=== PATIENT | female | born 1990 | race Caucasian/White ===

== ENCOUNTER 2023-02-03 10:35 | Emergency (ER) | payer MEDICAID, SELFPAY ==
[2023-02-03 10:40] VITALS: BP 140/88; PULSE 87; RESP 17; TEMP 36.8; O2SAT 97
--- NOTE | 2023-02-03 11:10 | W.ED.GENAD ---
Discharge Plan Disposition Patient Disposition: Home Condition: Fair Discharge Details Clinical Impression: Dental infection Primary Care Provider: None,None ED Provider: Chantal Dunlap Home Meds and New Rx's Prescriptions: New amoxicillin-pot clavulanate 875-125 mg tablet 1 tab PO BID Qty: 14 0RF Discharge Instructions Instructions: Dental Abscess (ED) Additional Instructions: Exam is most concerning for dental infection. Please take the antibiotics as prescribed. Even if symptoms improve, please see the entire course. You may use ice to help with discomfort. Tylenol and ibuprofen as needed for discomfort. Please take as directed on the packaging. He will need definitive care with dentist to ensure no recurrence of infection. I have attached a list of local dental resources that you may reach out to you to schedule follow-up appointment. I have also put the number for women's health below so that you may call to establish care. I have also asked her care management to assist with getting local primary care. If your symptoms worsen such as headache, vision changes, fevers, spreading of the swelling, difficulty swallowing or other new/worsening symptoms please seek care urgently once again. Referrals: Kierra Mena MD [ [facility] STAFF PHYSICIAN] - Discharge Data Discharge Date/Time-TO BE ENTERED AT DEPARTURE: 02/03/23 11:35 Medical Decision Making patient is a pleasant 32-year-old female without significant past medical history presents today with chief complaint of left upper dental pain that began yesterday. Woke this morning and notes swelling to her left cheek as well. She denies any fevers or chills. No headache. Swelling can impede her vision somewhat if he tries to look down but otherwise no blurred vision or eye pain. No pain with extraocular movements. She denies any sinus discharge. Reports that she has chronically poor dentition has not been seen by a dentist since she was a child. Patient is currently menstruating. Is new to the area, does not have local primary care and would like to also establish with women's health provider. On exam, patient appears nontoxic. She does have swelling to the left cheek that does extend just below the eye but no eye involvement. No surrounding erythema. No extraocular movement pain or limitations. Do not see evidence of orbital cellulitis. The skin is not erythematous at this time. No area of fluctuance. She does have poor dentition and pain seems to be more focal around teeth 10 and 11 although again, no intraoral abscesses palpated. Posterior oropharynx normal with no evidence of obstruction or abscess. Handling secretions well. No palpable lymphadenopathy. We will begin the patient on clindamycin. Encourage hydration. Tylenol and ibuprofen as needed for discomfort. We will give her a list of local primary care. Also given the number for women's wellness and asked care management to ensure follow-up with primary care. Strict return precautions were discussed. All questions and concerns were addressed and she is agreement this plan. After patient left, she needed prescription to be changed, will call in to [facility] in [facility] General Date/Time Provider Initiated Documentation: 02/03/23 10:39. Limitations to Documentation: no limitations. Information obtained by: patient and RN notes reviewed. History of Present Illness 32 year old F presents to the emergency department with the chief complaint of left upper dental pain and facial swelling, described as moderate and similar to prior episodes, with intensity rated at 5. Quality is described as aching, and is localized to the face and mouth. Patient reports no radiation. Patient started experiencing this day(s) and it has been constant. No relieving factors improve symptom(s), Eating worsens symptoms . Patient notes no other symptoms.. Patient did receive the following treatments prior to arrival, NSAID Related Data Home Medications Medication Instructions Recorded Confirmed amoxicillin 875 mg-potassium 1 tab PO BID #14 tabs 02/03/23 clavulanate 125 mg tablet Previous Rx's Medication Instructions Recorded amoxicillin 875 mg-potassium 1 tab PO BID #14 tabs 02/03/23 clavulanate 125 mg tablet Allergies Allergy/AdvReac Type Severity Reaction Status Date / Time sulfamethoxazole Allergy Unknown Other (See Unverified 02/03/23 10:45 [From Bactrim] Comment) trimethoprim [From Bactrim] Allergy Unknown Other (See Unverified 02/03/23 10:45 Comment) General Stated Complaint: DentalOral DANY: 4 Review of Systems Constitutional Constitutional: Reports as per HPI, Denies chills, Denies fatigue, Denies fever(s) and Denies headache(s) Eyes Eyes: Denies change in vision and Denies irritation ENT Ears, Nose, Mouth, and Throat: Reports as per HPI, Reports dental pain, Denies dysphagia, Denies otalgia, Reports facial pain, Denies headache(s), Denies hoarseness, Denies odynophagia and Denies sore throat Cardiovascular Cardiovascular: Reports as per HPI and Denies chest pain Respiratory Respiratory: Reports as per HPI and Denies cough Gastrointestinal Gastrointestinal: Reports as per HPI, Denies dysphagia, Denies nausea, Denies odynophagia and Denies vomiting Integumentary/Breasts Skin/Breast: Reports as per HPI, Denies erythema, Denies rash and Denies skin pain Neurologic Neurologic: Reports as per HPI and Denies headache(s) Endocrine Endocrine: Denies fatigue PFSH All Active Problems (Updated 02/12/23 @ 23:42 by Gerardo Diana NP) Dental infection (Acute) Ankle pain, left (Acute) Social History Smoking/Tobacco Use Status: Never Smoking risk assessment performed?: Yes Alcohol Intake: never Drug use: Occasionally Substance use type: marijuana Do you feel safe at home: Yes Do you feel safe in your relationship?: Yes Exam Const General: cooperative, healthy appearing, comfortable, no acute distress, well developed and well groomed Nutritional Appearance: well nourished and overweight Orientation: alert and awake [facility] Head: normal to inspection, normocephalic and atraumatic Ears: hearing grossly normal bilaterally, external ears normal and TM's normal bilaterally General nose exam: external nose normal and nares normal Face and sinus: sinuses nontender, face asymmetric (swelling noted left upper cheek, no fluctuant or redness), no crepitus, no ecchymosis, no erythema, no fluctuance, no sinus tenderness and tenderness Mouth: lip normal, tongue normal, oropharynx normal, moist mucous membranes, no audible dysphonia, no drooling and no muffled voice Teeth and gingiva: caries and poor dentition Throat: posterior oropharynx normal, tonsils normal and uvula midline Eyes General: appearance normal, both eyes and all related structures Neck Neck: normal visual inspection, full ROM, no lymphadenopathy, supple and no anterior neck swelling Resp Effort & Inspection: normal respiratory effort, able to speak in complete sentences and no respiratory distress Auscultation: clear to auscultation bilaterally, no rales, no rhonchi and no wheezes Cardio Rate: regular rate Rhythm: regular rhythm Heart Sounds: S1 normal and S2 normal Skin General skin exam: no rashes or lesions noted Trauma: no lacerations or abrasions Neuro General: patient alert and patient awake Cognition: normal cognition Speech: speech normal Gait: normal gait Psych Appearance: grossly normal and well kempt Mental Status: mental status grossly normal Speech and Movement: speech and movement normal Course Vital Signs Vital signs: Vital Signs Temperature 36.8 C 02/03/23 10:40 Pulse 87 02/03/23 10:40 Respiratory Rate 17 02/03/23 10:40 Blood Pressure 140/88 02/03/23 10:40 Pulse Oximetry 97 02/03/23 10:40 Temperature 36.8 C 02/03/23 10:40 Temperature Source Oral 02/03/23 10:40 Pulse 87 02/03/23 10:40 Respiratory Rate 17 02/03/23 10:40 Respiratory Effort Normal 02/03/23 10:44 Blood Pressure 140/88 02/03/23 10:40 Blood Pressure Position Sitting 02/03/23 10:40 Pulse Oximetry 97 02/03/23 10:40 Oxygen Delivery Method Room Air 02/03/23 10:40 Oxygen Flow Rate 0 02/03/23 10:40 Pain Level 5 02/03/23 10:44
== END 2023-02-03 11:35 | disposition home or self-care (01) ==
PROVIDERS: Emergency Provider Physician Assistant
DX: K04.7 Periapical abscess without sinus (principal)
CPT/HCPCS: 99283

== ENCOUNTER 2023-02-12 22:24 | Emergency (ER) | payer MEDICAID, SELFPAY ==
[2023-02-12 22:27] VITALS: BP 148/66; PULSE 79; RESP 22; TEMP 36.9; O2SAT 99
--- NOTE | 2023-02-12 22:30 | DI.RAD_ITS ---
Exam(s) XR ANKLE LT COMPLETE EXAM: XR ANKLE LT COMPLETE CLINICAL HISTORY: left ankle TECHNIQUE: 2D digital imaging was performed. Three views. COMPARISON: No exams were available for comparison FINDINGS: BONES: No acute fracture is present. No bony destructive lesion is seen. Hardware present distal ti az and fibula JOINTS:The ankle mortise is normally aligned. SOFT TISSUE: Normal. IMPRESSION: No acute abnormality. DATA REPOSITORY: RADIATION DOSE DELIVERED:
[2023-02-12] MEDS: Ibuprofen 600 MG TAB PO (22:46)
--- NOTE | 2023-02-12 23:30 | ED.GENADUL_ITS ---
Discharge Plan Disposition Patient Disposition: Home Discharge Details Clinical Impression: Ankle pain, left Primary Care Provider: None,None ED Provider: Gerardo Diana Home Meds and New Rx's Prescriptions: No Action amoxicillin-pot clavulanate 875-125 mg tablet 1 tab PO BID Qty: 14 0RF Discharge Instructions Instructions: Ankle Strain (ED) Additional Instructions: You may continue to use [id number] acetaminophen or ibuprofen as needed for discomfort. Please take on packaging. If you have any new or significant worsening of symptoms feel free to return the emergency department for reassessment otherwise follow-up with your primary care provider for recheck if you are not improving over the next 1 to 2 weeks. Referrals: Primary Care Provider [Outside] Discharge Data Discharge Date/Time-TO BE ENTERED AT DEPARTURE: 02/12/23 23:53 Medical Decision Making Patient presenting to the emergency department for chief complaint of left ankle pain. Patient states previous fracture approximately 7 years ago. [place] and then when she got home started noticing worsening ankle pain and discomfort with some swelling. Denies known specific injury or trauma. Denies all other symptoms. Physical exam shows tenderness mostly to the ligamentous areas of the ankle with no specific bony prominence tenderness of concern. Distal to the ankle there is no tenderness pulses sensation cap refill and movement is all intact. Patient actually does have appropriate range of motion of ankle. I suspect mostly soft tissue/ligamentous injury but will perform radiological imaging given that patient states complicated previous repair with in-place hardware. Pending results. Patient ibuprofen. Reviewed radiological imaging and do not see any signs of acute fracture or dislocation. Due to time of evening patient wanting to go home we will discharge patient but I did inform her that we will contact her if there are any significant abnormalities noted on radiologist read. Patient given Pio wrap and ice pack per her request which I feel is reasonable and patient to follow-up with primary care provider for any new or significant worsening of symptoms or return as needed.After discussion of diagnosis and plan of care patient has no further needs, questions, or concerns and states clear understanding to return to the emergency department for any worsening symptoms. This documentation was generated using [employer] system, please disregard any oddities of phrase or misspellings. HPI General Mode of arrival: wheelchair . Date/Time Provider Initiated Documentation: 02/12/23 22:35 . Limitations to Documentation: no limitations . Information obtained by: patient, family and RN notes reviewed . History of Present Illness 32 year old F presents to the emergency department with the chief complaint of Left ankle pain, described as moderate, severe and similar to prior episodes, and is localized to the left and lower extremity. Patient started experiencing this hour(s) (3) and it has been constant. No relieving factors improve symptom(s), Movement worsens symptoms . Patient notes no other symptoms.. Patient did receive the following treatments prior to arrival, none Related Data Home Medications Medication Instructions Recorded Confirmed amoxicillin 875 mg-potassium 1 tab PO BID #14 tabs 02/03/23 clavulanate 125 mg tablet Previous Rx's Medication Instructions Recorded amoxicillin 875 mg-potassium 1 tab PO BID #14 tabs 02/03/23 clavulanate 125 mg tablet Allergies Allergy/AdvReac Type Severity Reaction Status Date / Time sulfamethoxazole Allergy Unknown Other (See Unverified 02/03/23 10:45 [From Bactrim] Comment) trimethoprim [From Bactrim] Allergy Unknown Other (See Unverified 02/03/23 10:45 Comment) General Stated Complaint: Orthopedic DANY: 4 Review of Systems Narrative: 6 systems reviewed and unremarkable except what is marked below. Musculoskeletal Musculoskeletal: Reports as per HPI and Reports arthralgias PFSH All Active Problems (Updated 02/12/23 @ 23:42 by Gerardo Diana NP) Dental infection (Acute) Ankle pain, left (Acute) Social History Smoking/Tobacco Use Status: Never Smoking risk assessment performed?: Yes Alcohol Intake: never Drug use: Occasionally Substance use type: marijuana Do you feel safe at home: Yes Do you feel safe in your relationship?: Yes Exam Const General: cooperative, no acute distress and not ill appearing Orientation: alert, awake and oriented x3 HENMT Mouth: moist mucous membranes Resp Effort & Inspection: normal respiratory effort, able to speak in complete sentences and no respiratory distress Cardio Rate: regular rate Rhythm: regular rhythm Pulses: normal peripheral pulses Skin General skin exam: no rashes or lesions noted Neuro General: patient alert, patient awake, patient oriented x3, moves all extremities and no focal motor deficits Sensory Exam: no sensory deficits noted Extrem Left lower extremity: ankle Details: tenderness Location: of the anterior talofibular ligament; not of the lateral malleolus and not of the medial ma lleolus and normal ROM; no swelling, no abrasions and no lacerations and foot Details: normal capillary refill, toes with normal ROM and vascular exam Details: dorsalis pedis pulse present and normal capillary refill; no tenderness Course Vital Signs Vital signs: Vital Signs Temperature 36.9 C 02/12/23 22:27 Pulse 79 02/12/23 22:27 Respiratory Rate 22 02/12/23 22:27 Blood Pressure 148/66 H 02/12/23 22:27 Pulse Oximetry 99 02/12/23 22:27 Temperature 36.9 C 02/12/23 22:27 Pulse 79 02/12/23 22:27 Respiratory Rate 22 02/12/23 22:27 Respiratory Effort Normal 02/12/23 22:31 Blood Pressure 148/66 H 02/12/23 22:27 Blood Pressure Position Sitting 02/12/23 22:27 Pulse Oximetry 99 02/12/23 22:27 Pain Level 9 02/12/23 22:27
--- NOTE | 2023-02-12 23:56 | DI.VRAD_ITS ---
PROCEDURE INFORMATION: Exam: XR Left Ankle Exam date and time: 02/12/2023 11:05 PM Age: 32 years old Clinical indication: Pain; Ankle; Left; Prior surgery; Surgery date: 6+ months; Surgery type: Reconstruction surgery; Additional info: Left ankle pain TECHNIQUE: Imaging protocol: Radiologic exam of the left ankle. Views: 3 or more views. COMPARISON: No relevant prior studies available. FINDINGS: Tubes, catheters and devices: Old healed fracture of the left distal tibia and fibula with surgical plates and screws. Bones/joints: Noninflamed enthesophyte seen within the region of the Achilles tendon.There is a noninflamed plantar enthesophyte. There is a small calcification at the distal lateral malleolus likely representing sequelae of patient's prior injury although a small acute avulsion fracture cannot be totally excluded. Soft tissues: There is mild soft tissue swelling present. IMPRESSION: 1. There is a small calcification at the distal lateral malleolus likely representing sequelae of patient's prior injury although a small acute avulsion fracture cannot be totally excluded. 2. There is mild soft tissue swelling present. Dictated and Authenticated by: Deon Mccartney MD. Ordering:DOMINIK Carrillo MD
== END 2023-02-12 23:53 | disposition home or self-care (01) ==
PROVIDERS: Emergency Provider Nurse Practitioner Family
DX: M25.572 Pain in left ankle and joints of left foot (principal); R22.42 Localized swelling, mass and lump, left lower limb
CPT/HCPCS: 81025; 99283; 73610